=== PATIENT | male | born 1970 | race Asian ===

== ENCOUNTER 2017-09-22 14:21 | Outpatient (CLI) | payer OTHER | END 2017-09-22 14:22 | disposition home or self-care (01) | LOC: SC 14:21 | PROVIDERS: ATTEND Internal Medicine Pulmonary Disease | DX: G47.33 Obstructive sleep apnea (adult) (pediatric) (principal); K21.9 Gastro-esophageal reflux disease without esophagitis; E11.9 Type 2 diabetes mellitus without complications | CPT/HCPCS: 99203; 99212 ==

== ENCOUNTER 2020-07-30 22:27 | Emergency (ER) | payer OTHER ==
--- OUTSIDE RECORDS SUMMARY | 2020-07-30 23:03 | EXTERNAL MEDICAL SUMMARY RPT | Continuity of Care Document ---
:1970 Demographics Phone Unavailable Preferred Language Unknown Marital Status Unknown Christian Affiliation Unknown Race Unknown Ethnic Group Unknown Author Organization [facility] Address [address] [place] [address] Phone Social History date description facility [id number]
--- NOTE | 2020-07-30 23:08 | ED Physician Documentation ---
PD HPI UPPER EXT INJURY - Stated complaint Stated Complaint: SWOLLEN L THUMB - Chief complaint Chief Complaint: Wound - History obtained from History obtained from: Patient - History of Present Illness Location: Left, Finger (thumb) Type of injury: Other (unknown injury bothering for 6 months) Where injury occurred: Work Timing - onset: How many months ago (6) Timing - duration: Days (2 worsening) Timing - details: Gradual onset, Still present Improved by: Rest Worsened by: Moving, Palpating Associated symptoms: Swelling. No: Weakness, Numbness, Tingling Contributing factors: No: Anticoagulated Similar symptoms before: Has not had sx before Recently seen: Not recently seen - Additonal information Additional information: 50-year-old male indicates that about 6 months ago he has had 2 small areas on each of his thumbs 1 on the palmar surface of the distal thumb on the right side and the dorsal surface of the distal thumb on the left side. He has unroofed these he has periodically gotten some fluid out of them they have never really bothered him with pain and then about 2 days ago his left thumb began to bother him with pain and swelling. He cannot move it as well as normally and this is never been an issue over the past 6 months. He works as an aircraft worker and he does not know of an incident where he would have gotten foreign material under his skin but he does sometimes to machine and metallic foreign body is a possibility. Review of Systems Constitutional: denies: Fever Eyes: denies: Decreased vision Ears: denies: Ear pain Nose: denies: Congestion Throat: denies: Sore throat Respiratory: denies: Cough GI: denies: Vomiting PD PAST MEDICAL HISTORY - Past Medical History Past Medical History: No - Past Surgical History Past Surgical History: No - Present Medications Home Medications: Ambulatory Orders Medication Instructions Recorded Confirmed Sulfamethox/Trimeth 800/160 1 each PO BID #14 tablet 07/30/20 [Bactrim Ds] - Allergies Allergies/Adverse Reactions: Allergies Allergy/AdvReac Type Severity Reaction Status Date / Time No Known Drug Allergies Allergy Verified 07/30/20 22:34 - Social History Does the pt smoke?: No Smoking Status: Never smoker Does the pt drink ETOH?: No Does the pt have substance abuse?: No - Immunizations Immunizations are current?: Yes - POLST Patient has POLST: No PD ED PE NORMAL - Vitals Vital signs reviewed: Yes (hypertensive mild ) - General General: Alert and oriented X 3, No acute distress, Well developed/nourished - HEENT HEENT: Atraumatic, PERRL, EOMI - Respiratory Respiratory: No respiratory distress - Derm Derm: Normal color, Warm and dry, No rash - Extremities Extremities: No deformity, Other (There is a 4 mm round white pustule over the palmar surface of the distal right thumb and the dorsal surface of the distal left thumb just distal to the DIP. mild swelling and decreased ROM on the L. ) - Neuro Neuro: Alert and oriented X 3, spray gunner 2-12 intact, No motor deficit, No sensory deficit, Normal speech Eye Opening: Spontaneous Motor: Obeys Commands Verbal: Oriented GCS Score: 15 - Psych Psych: Normal mood, Normal affect Results - Vitals Vitals: Vital Signs - 24 hr 07/30/20 07/31/20 22:29 00:01 Temperature 36.8 C 36.6 C Heart Rate 77 76 Respiratory 16 16 Rate Blood Pressure 149/93 H 140/90 H O2 Saturation 98 100 Oxygen O2 Source Room air - Rads (name of study) thumb Radiology: Prelim report reviewed (Impression: Minor thumb degenerative changes. Indeterminate calcification anterior to the interphalangeal joint. This could be a small avulsion fracture or chronic ossicle.), EMP read indepedently, See rad report PD MEDICAL DECISION MAKING - ED course Complexity details: considered differential, d/w patient ED course: 50-year-old male with what appears to be a wart on his thumb has generalized swelling and tenderness to the thumb with the thought he may have some infection in the area. I did a plain film of the patient's thumb to rule out the possibility of a small foreign body metallic associated with this lesion on the dorsum of the thumb. There were no findings on the x-ray in the area of the patient's mass. He is administered sulfamethoxazole trimethoprim we have referred him to dermatology for further assessment of what appears to be a wart. Departure - Departure Disposition: 01 Home, Self Care Clinical Impression: Cellulitis of thumb, left Instructions: ED Staph Infec Abx Tx Only Follow-Up: [facility] [Provider Group] Prescriptions: Sulfamethox/Trimeth 800/160 [Bactrim Ds] 1 each PO BID #14 tablet Discharge Date/Time: 07/31/20 00:01
[2020-07-30] MEDS ORDERED: SULFAMETH/TRIMETH DS 800/160 MG TABLET PO STA (23:56)
[2020-07-31 00:02] VITALS: BP 140/90
--- NOTE | 2020-07-31 11:04 | XRAY Report ---
PROCEDURE: Finger(s) LT INDICATIONS: ? fb left dorsal thumb TECHNIQUE: AP hand, 3 views of the first finger(s) acquired. COMPARISON: None FINDINGS: Bones: Small calcification is noted anterior to the IP joint. No suspicious bony lesions. Soft tissues: No suspicious soft tissue calcifications. No radiopaque foreign body. IMPRESSION: Small calcification anterior to the IP joint suspected to be ossicle. If there is point tenderness wi thin this region small avulsion cannot be excluded. No radiopaque foreign body. The above findings are concordant with preliminary report. Reviewed by: Abida Mccloud MD on 07/31/2020 11:03 AM PDT Approved by: Abida Mccloud MD on 07/31/2020 11:03 AM PDT Station ID: [id number]
== END 2020-07-31 00:01 | disposition home or self-care (01) ==
LOC: ED 22:27
DX: L03.012 Cellulitis of left finger (principal)
CPT/HCPCS: 73140; 99283; 99284; A9270

== ENCOUNTER 2021-09-03 09:50 | Outpatient (CLI) | payer OTHER ==
--- NOTE | 2021-09-03 14:48 | MRI Report ---
PROCEDURE: Shoulder LT W/O INDICATIONS: ADHESIVE CAPSULITIS OF SHOULDER TECHNIQUE: Noncontrast oblique coronal T2 fast spin echo with fat saturation, oblique sagittal T1 spin echo and T2 fast spin echo with fat saturation, axial T1 spin echo and T2 fast spin echo with fat saturation t hrough the shoulder. COMPARISON: None. FINDINGS: Image quality: Excellent. Rotator cuff: There is moderate T2 signal elevation within the supraspinatus and infraspinatus tendon s at the humeral insertion sites extending the muscular tendinous junctions, indicating tendinopathy. Superimposed low-grade bursal surface tearing of the mid supraspinatus tendon at the humeral inserti on site. Subscapularis, infraspinatus, and teres minor tendons are intact. No rotator cuff atrophy. Bones and bursae: No bone marrow contusions or fractures. Moderate acromioclavicular joint degenerat ion. The acromion demonstrates conventional anatomy, without an os acromiale. No pathologic subacro mial/subdeltoid bursal fluid is present. Capsule and soft tissues: In the absence of intra-articular contrast, the labrum and glenohumeral li gaments appear intact. The long head of the biceps tendon demonstrates normal location and morpholog y. The rotator interval appears normal, without fibrosis. The coracohumeral ligament is normal in t hickness. IMPRESSION: 1. Supraspinatus and infraspinatus tendinopathy with superimposed small low-grade tearing of the supe r spinatus. No full-thickness rotator cuff tear. 2. Acromioclavicular joint osteoarthritis. Reviewed by: Dorian Lou MD on 09/03/2021 2:46 PM PDT Approved by: Dorian Lou MD on 09/03/2021 2:46 PM PDT Station ID: [id number]
== END 2021-09-03 09:51 | disposition home or self-care (01) ==
LOC: DI 09:50
PROVIDERS: ATTEND Student in an Organized Health Care Education/Training Program
DX: M75.102 Unspecified rotator cuff tear or rupture of left shoulder, not specified as traumatic (principal); M19.012 Primary osteoarthritis, left shoulder

== ENCOUNTER 2023-03-31 08:04 | Outpatient (CLI) | payer OTHER ==
--- NOTE | 2023-03-31 17:24 | Ultrasound Report ---
PROCEDURE: Abdomen Limited INDICATIONS: ELEVATED LIVER ENZYMES TECHNIQUE: Real-time focused scanning was performed of the abdomen, with image documentation. COMPARISONS: None. FINDINGS: Liver: The liver measures 15.8 cm in length and demonstrates markedly increased echogenicity. Gallbladder: Unremarkable. Biliary ducts: Intrahepatic bile ducts are non-dilated. Extrahepatic bile duct caliber measures 5.7 mm. Normal is 6-7 mm or less in diameter, or 10 mm or less post-cholecystectomy. Pancreas: Pancreas is not visualized due to bowel gas. Right kidney: Normal in size and echotexture. Right kidney measures 11.4 cm long. No hydronephrosis or nephrolithiasis. No solid masses. No complex renal cystic lesions which require follow-up. IMPRESSION: 1. Markedly increased hepatic echogenicity suggesting hepatic steatosis although other sources of hep atocellular dysfunction cannot be excluded. 2. No findings to suggest acute cholecystitis or choledocholithiasis. Reviewed by: Megan Camarillo MD on 03/31/2023 5:23 PM PST Approved by: Megan Camarillo MD on 03/31/2023 5:23 PM PST Station ID: [id number]
== END 2023-03-31 08:05 | disposition home or self-care (01) ==
LOC: DI 08:04
PROVIDERS: ATTEND Family Medicine
DX: R74.01 Elevation of levels of liver transaminase levels (principal); R93.2 Abnormal findings on diagnostic imaging of liver and biliary tract